=== PATIENT | female | born 1950 | race Caucasian/White ===

== ENCOUNTER 2016-09-10 11:43 | Outpatient (CLI) | payer MEDICARE, MEDICAID | END 2016-09-10 11:44 | disposition home or self-care (01) | DX: Z79.01 Long term (current) use of anticoagulants (principal); I48.91 Unspecified atrial fibrillation ==

== ENCOUNTER 2016-09-12 08:00 | Outpatient (CLI) | payer MEDICARE, MEDICAID | END 2016-09-12 08:01 | disposition home or self-care (01) | DX: I48.91 Unspecified atrial fibrillation (principal); Z79.01 Long term (current) use of anticoagulants ==

== ENCOUNTER 2016-09-18 11:30 | Outpatient (CLI) | payer MEDICARE, MEDICAID | END 2016-09-18 11:31 | disposition home or self-care (01) | DX: I48.91 Unspecified atrial fibrillation (principal); Z79.01 Long term (current) use of anticoagulants ==

== ENCOUNTER 2016-09-24 18:16 | Outpatient (CLI) | payer MEDICARE, MEDICAID | END 2016-09-24 18:17 | disposition home or self-care (01) | DX: Z79.01 Long term (current) use of anticoagulants (principal); I48.91 Unspecified atrial fibrillation ==

== ENCOUNTER 2016-10-09 09:38 | Outpatient (CLI) | payer MEDICARE, MEDICAID | END 2016-10-09 09:39 | disposition EMS.NT | DX: R09.89 Other specified symptoms and signs involving the circulatory and respiratory systems (principal) ==

== ENCOUNTER 2016-10-09 16:14 | Outpatient (CLI) | payer MEDICARE, MEDICAID | END 2016-10-09 16:15 | disposition home or self-care (01) | DX: Z79.01 Long term (current) use of anticoagulants (principal); I48.91 Unspecified atrial fibrillation ==

== ENCOUNTER 2016-10-30 13:28 | Outpatient (CLI) | payer MEDICARE, MEDICAID | END 2016-10-30 13:29 | disposition home or self-care (01) | DX: Z79.01 Long term (current) use of anticoagulants (principal); I48.91 Unspecified atrial fibrillation ==

== ENCOUNTER 2016-10-30 19:46 | Outpatient (CLI) | payer MEDICARE, MEDICAID | END 2016-10-30 19:47 | disposition short-term general hospital (02) | LOC: EMS 19:46 | PROVIDERS: ATTEND Surgery | DX: R79.1 Abnormal coagulation profile (principal) | CPT/HCPCS: A0425; A0429 ==

== ENCOUNTER 2016-10-31 11:14 | Outpatient (CLI) | payer MEDICARE, MEDICAID | END 2016-10-31 11:15 | disposition home or self-care (01) | DX: Z79.01 Long term (current) use of anticoagulants (principal); I48.91 Unspecified atrial fibrillation ==

== ENCOUNTER 2016-11-05 18:04 | Outpatient (CLI) | payer MEDICARE, MEDICAID | END 2016-11-05 18:05 | disposition home or self-care (01) | DX: Z79.01 Long term (current) use of anticoagulants (principal); I48.91 Unspecified atrial fibrillation ==

== ENCOUNTER 2016-11-10 15:11 | Outpatient (CLI) | payer MEDICARE, MEDICAID | END 2016-11-10 15:12 | disposition home or self-care (01) | DX: Z79.01 Long term (current) use of anticoagulants (principal); I48.91 Unspecified atrial fibrillation ==

== ENCOUNTER 2016-11-14 13:49 | Outpatient (CLI) | payer MEDICARE, MEDICAID | END 2016-11-14 13:50 | disposition home or self-care (01) | DX: I48.91 Unspecified atrial fibrillation (principal); Z79.01 Long term (current) use of anticoagulants ==

== ENCOUNTER 2016-11-17 11:05 | Outpatient (CLI) | payer MEDICARE, MEDICAID | END 2016-11-17 11:06 | disposition home or self-care (01) | DX: I48.91 Unspecified atrial fibrillation (principal); Z79.01 Long term (current) use of anticoagulants ==

== ENCOUNTER 2016-11-24 13:38 | Outpatient (CLI) | payer MEDICARE, MEDICAID | END 2016-11-24 13:39 | disposition home or self-care (01) | DX: I48.91 Unspecified atrial fibrillation (principal); Z79.01 Long term (current) use of anticoagulants ==

== ENCOUNTER 2016-12-01 14:17 | Outpatient (CLI) | payer MEDICARE, MEDICAID | END 2016-12-01 14:18 | disposition home or self-care (01) | DX: Z79.01 Long term (current) use of anticoagulants (principal); I48.91 Unspecified atrial fibrillation ==

== ENCOUNTER 2016-12-08 10:19 | Outpatient (CLI) | payer MEDICARE, MEDICAID | END 2016-12-08 10:20 | disposition home or self-care (01) | DX: I48.91 Unspecified atrial fibrillation (principal); Z79.01 Long term (current) use of anticoagulants; E11.9 Type 2 diabetes mellitus without complications; E03.9 Hypothyroidism, unspecified ==

== ENCOUNTER 2016-12-15 15:07 | Outpatient (CLI) | payer MEDICARE, MEDICAID | END 2016-12-15 15:08 | disposition home or self-care (01) | DX: I48.91 Unspecified atrial fibrillation (principal); Z79.01 Long term (current) use of anticoagulants ==

== ENCOUNTER 2016-12-22 15:32 | Outpatient (CLI) | payer MEDICARE, MEDICAID | END 2016-12-22 15:33 | disposition home or self-care (01) | DX: I48.91 Unspecified atrial fibrillation (principal); Z79.01 Long term (current) use of anticoagulants ==

== ENCOUNTER 2016-12-25 11:03 | Outpatient (CLI) | payer MEDICARE, MEDICAID | END 2016-12-25 11:04 | disposition home or self-care (01) | DX: E03.9 Hypothyroidism, unspecified (principal); E11.9 Type 2 diabetes mellitus without complications; D50.9 Iron deficiency anemia, unspecified; I10 Essential (primary) hypertension; E66.01 Morbid (severe) obesity due to excess calories ==

== ENCOUNTER 2016-12-28 20:43 | Outpatient (CLI) | payer MEDICARE, MEDICAID | END 2016-12-28 20:44 | disposition home or self-care (01) | DX: Z79.01 Long term (current) use of anticoagulants (principal); I48.91 Unspecified atrial fibrillation ==

== ENCOUNTER 2017-01-12 11:08 | Outpatient (CLI) | payer MEDICARE, MEDICAID | END 2017-01-12 11:09 | disposition home or self-care (01) | LOC: LAB.F 11:08 | PROVIDERS: ATTEND Pharmacist Pharmacist Clinician (PhC)/ Clinical Pharmacy Specialist | DX: I48.91 Unspecified atrial fibrillation (principal); Z79.01 Long term (current) use of anticoagulants | CPT/HCPCS: 85610 ==

== ENCOUNTER 2017-01-30 15:01 | Outpatient (CLI) | payer MEDICARE, MEDICAID | END 2017-01-30 15:02 | disposition home or self-care (01) | LOC: LAB.F 15:01 | PROVIDERS: ATTEND Pharmacist Pharmacist Clinician (PhC)/ Clinical Pharmacy Specialist | DX: I48.91 Unspecified atrial fibrillation (principal); Z79.01 Long term (current) use of anticoagulants | CPT/HCPCS: 85610 ==

== ENCOUNTER 2017-02-26 08:00 | Outpatient (CLI) | payer MEDICARE, MEDICAID | END 2017-02-26 08:01 | LOC: LAB.F 08:00 | PROVIDERS: ATTEND Pharmacist Pharmacist Clinician (PhC)/ Clinical Pharmacy Specialist | DX: Z79.01 Long term (current) use of anticoagulants (principal) | CPT/HCPCS: 85610 ==

== ENCOUNTER 2017-03-20 14:47 | Outpatient (CLI) | payer MEDICARE, MEDICAID | END 2017-03-20 14:48 | disposition home or self-care (01) | LOC: LAB.F 14:47 | PROVIDERS: ATTEND Pharmacist Pharmacist Clinician (PhC)/ Clinical Pharmacy Specialist | DX: I48.91 Unspecified atrial fibrillation (principal); Z79.01 Long term (current) use of anticoagulants | CPT/HCPCS: 85610 ==

== ENCOUNTER 2017-04-17 15:24 | Outpatient (CLI) | payer MEDICARE, MEDICAID | END 2017-04-17 15:25 | disposition home or self-care (01) | LOC: LAB.F 15:24 | PROVIDERS: ATTEND Pharmacist Pharmacist Clinician (PhC)/ Clinical Pharmacy Specialist | DX: I48.91 Unspecified atrial fibrillation (principal); Z79.01 Long term (current) use of anticoagulants | CPT/HCPCS: 85610 ==

== ENCOUNTER 2017-04-24 14:45 | Outpatient (CLI) | payer MEDICARE, MEDICAID | END 2017-04-24 14:46 | disposition home or self-care (01) | LOC: LAB.F 14:45 | PROVIDERS: ATTEND Pharmacist Pharmacist Clinician (PhC)/ Clinical Pharmacy Specialist | DX: I48.91 Unspecified atrial fibrillation (principal); Z79.01 Long term (current) use of anticoagulants | CPT/HCPCS: 85610 ==

== ENCOUNTER 2017-05-06 15:16 | Outpatient (CLI) | payer MEDICARE, MEDICAID | END 2017-05-06 15:17 | disposition home or self-care (01) | LOC: LAB.F 15:16 | PROVIDERS: ATTEND Pharmacist Pharmacist Clinician (PhC)/ Clinical Pharmacy Specialist | DX: I48.91 Unspecified atrial fibrillation (principal); Z79.01 Long term (current) use of anticoagulants | CPT/HCPCS: 85610 ==

== ENCOUNTER 2017-06-01 15:24 | Outpatient (CLI) | payer MEDICARE, MEDICAID | END 2017-06-01 15:25 | disposition home or self-care (01) | LOC: LAB.F 15:24 | PROVIDERS: ATTEND Family Medicine | DX: I48.91 Unspecified atrial fibrillation (principal); Z79.01 Long term (current) use of anticoagulants | CPT/HCPCS: 85610 ==

== ENCOUNTER 2017-07-06 11:31 | Outpatient (CLI) | payer MEDICARE, MEDICAID | END 2017-07-06 11:32 | disposition home or self-care (01) | LOC: LAB.F 11:31 | PROVIDERS: ATTEND Pharmacist Pharmacist Clinician (PhC)/ Clinical Pharmacy Specialist | DX: I48.91 Unspecified atrial fibrillation (principal); Z79.01 Long term (current) use of anticoagulants | CPT/HCPCS: 85610 ==

== ENCOUNTER 2017-07-23 13:58 | Outpatient (CLI) | payer MEDICARE, MEDICAID | END 2017-07-23 13:59 | disposition home or self-care (01) | LOC: LAB.F 13:58 | PROVIDERS: ATTEND Pharmacist Pharmacist Clinician (PhC)/ Clinical Pharmacy Specialist | DX: Z79.01 Long term (current) use of anticoagulants (principal); I48.91 Unspecified atrial fibrillation | CPT/HCPCS: 85610 ==

== ENCOUNTER 2017-08-12 11:43 | Outpatient (CLI) | payer MEDICARE, MEDICAID | END 2017-08-12 11:44 | disposition home or self-care (01) | LOC: LAB.F 11:43 | PROVIDERS: ATTEND Pharmacist Pharmacist Clinician (PhC)/ Clinical Pharmacy Specialist | DX: I48.91 Unspecified atrial fibrillation (principal); Z79.01 Long term (current) use of anticoagulants | CPT/HCPCS: 85610 ==

== ENCOUNTER 2017-08-14 13:55 | Outpatient (CLI) | payer MEDICARE, MEDICAID | END 2017-08-14 13:56 | disposition home or self-care (01) | LOC: LAB.F 13:55 | PROVIDERS: ATTEND Pharmacist Pharmacist Clinician (PhC)/ Clinical Pharmacy Specialist | DX: I48.91 Unspecified atrial fibrillation (principal); Z79.01 Long term (current) use of anticoagulants | CPT/HCPCS: 85610 ==

== ENCOUNTER 2017-08-21 16:12 | Outpatient (CLI) | payer MEDICARE, MEDICAID | END 2017-08-21 16:13 | disposition home or self-care (01) | LOC: LAB.F 16:12 | PROVIDERS: ATTEND Pharmacist Pharmacist Clinician (PhC)/ Clinical Pharmacy Specialist | DX: I48.91 Unspecified atrial fibrillation (principal); Z79.01 Long term (current) use of anticoagulants | CPT/HCPCS: 85610 ==

== ENCOUNTER 2017-08-28 08:00 | Outpatient (CLI) | payer MEDICARE, MEDICAID ==
[2017-08-28 19:03] LABS: PT - PROTHROMBIN TIME 98.7 secs (9.9-12.6)
[2017-08-28 19:33] LABS: INR 9.5 (0.8-1.2)
== END 2017-08-28 08:01 | disposition home or self-care (01) ==
LOC: LAB.F 08:00
DX: I48.91 Unspecified atrial fibrillation (principal); Z79.01 Long term (current) use of anticoagulants; I48.2 Chronic atrial fibrillation; Z51.81 Encounter for therapeutic drug level monitoring
CPT/HCPCS: 36415; 85610

== ENCOUNTER 2017-08-31 14:26 | Outpatient (CLI) | payer MEDICARE, MEDICAID | END 2017-08-31 14:27 | disposition home or self-care (01) | LOC: LAB.F 14:26 | PROVIDERS: ATTEND Pharmacist | DX: Z79.01 Long term (current) use of anticoagulants (principal); I48.91 Unspecified atrial fibrillation | CPT/HCPCS: 85610 ==

== ENCOUNTER 2017-09-02 15:27 | Outpatient (CLI) | payer MEDICARE, MEDICAID | END 2017-09-02 15:28 | disposition short-term general hospital (02) | LOC: EMS 15:27 | PROVIDERS: ATTEND Surgery | DX: N93.9 Abnormal uterine and vaginal bleeding, unspecified (principal) | CPT/HCPCS: A0425; A0429 ==

== ENCOUNTER 2017-09-04 12:03 | Emergency (ER) | payer MEDICARE, MEDICAID ==
[2017-09-04 12:25] VITALS: BP 129/97
[2017-09-04] MEDS ORDERED: PHYTONADIONE 10 MG/ML AMP PO STA ×3 (14:41→15:06)
--- NOTE | 2017-09-04 14:46 | ED Physician Documentation ---
History of Present Illness - Stated complaint Stated Complaint: L BIG TOE PX - Chief complaint Chief Complaint: General - History obtained from History obtained from: Patient - History of Present Illness Timing: How many days ago (4) Pain level max: 2 Pain level now: 2 Improved by: rest Worsened by: walking - Additonal information Additional information: Patient is a 67-year-old female who presents to the emergency department with left great toe pain. She states that it was swollen a few days ago, her son squeezed and there was pus that came out, now concerned that there is redness. Called her primary doctor who stated she cannot be seen there needs to come to the emergency department. Patient has no fevers. She also had an elevated INR last week and has been off her warfarin. 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 : Incontinence HEENT: Chronic sinusitis, Other Psych: Depression, Anxiety, Bipolar disorder, Claustrophobia Musculoskeletal: Osteoarthritis Derm: None - Past Surgical History Past Surgical History: Yes General: Appendectomy Ortho: Knee replacement, Carpal Tunnel surgery /HELPDES[employer] TECHNICIAN: Dilation and currettage Cardiovascular: Pacemaker HEENT: Tonsil/Adenoidectomy - Present Medications Home Medications: Ambulatory Orders Medication Instructions Recorded Confirmed Furosemide [Lasix] 40 mg PO BID 03/17/13 09/04/17 Lansoprazole [Prevacid] 30 mg PO BID 03/17/13 09/04/17 Levothyroxine [Synthroid] 100 mcg PO DAILY 03/17/13 09/04/17 Potassium Chloride [Klor-Con M20] 20 meq PO DAILY 03/17/13 09/04/17 Warfarin Sodium [Coumadin] 4 mg PO ONCE 03/17/13 09/04/17 metFORMIN [Glucophage] 1,000 mg PO BID 03/17/13 09/04/17 Fluticasone [Flonase] 2 sprays ECHO BID 06/24/13 09/04/17 Lactulose 2 tbs PO BID PRN 06/24/13 09/04/17 Lubiprostone [Amitiza] 24 mcg PO BID 06/24/13 09/04/17 Sotalol [Betapace] 80 mg PO BID 06/24/13 09/04/17 Celecoxib [Celebrex] 200 mg PO BID 09/04/14 09/04/17 Citalopram Hydrobromide 20 mg PO DAILY 09/04/14 09/04/17 [Citalopram HBr] Nystatin/Triamcin 30 gm TP BID PRN 09/04/14 09/04/17 [Nystatin-Triamcinolone Cream] Simvastatin 20 mg PO DAILY 09/04/14 09/04/17 Dicyclomine [Bentyl] 1 tab PO DAILY 03/16/16 09/04/17 Doxycycline Hyclate 100 mg PO BID #14 capsule 09/04/17 - Allergies Allergies/Adverse Reactions: Allergies Allergy/AdvReac Type Severity Reaction Status Date / Time amlodipine Allergy Unknown Unknown Verified 09/04/17 12:48 flecainide Allergy Unknown Unknown Verified 09/04/17 12:48 cephalexin monohydrate * AdvReac Intermediate Diarrhea Verified 09/04/17 12:48 [From Keflex] tape AdvReac Intermediate Rash Uncoded 09/04/17 12:48 - Social History Does the pt smoke?: No Smoking Status: Never smoker Does the pt drink ETOH?: No Does the pt have substance abuse?: No - Immunizations Immunizations are current?: Yes - POLST Patient has POLST: No PD ED PE NORMAL - Vitals Vital signs reviewed: Yes - General General: Alert and oriented X 3, No acute distress - HEENT HEENT: Moist mucous membranes - Derm Derm: Warm and dry - Extremities Extremities: Other (Left great toe is mildly erythematous on the plantar aspect. No drainable abscess. No evidence of deep space infection in the foot. No drainage. Neurovascularly intact) - Neuro Neuro: Alert and oriented X 3 - Psych Psych: Normal mood, Normal affect Results - Vitals Vitals: Vital Signs - 24 hr 09/04/17 12:20 Temperature 36.2 C L Heart Rate 127 H Respiratory 20 Rate Blood Pressure 129/97 H O2 Saturation 97 Oxygen O2 Source [With Activity] Room air O2 Source Room air - Labs Labs: Laboratory Tests 09/04/17 14:40 Whole Blood INR 8.0 H* PD MEDICAL DECISION MAKING - ED course Complexity details: reviewed old records, reviewed results, re-evaluated patient , considered differential, d/w patient ED course: Patient presents to the emergency department with a mild cellulitis of the left great toe. Will place on antibiotics for this. As I was reviewing her chart, I noted that she had a significantly elevated INR recently, patient states that she forgot to tell me about this and has not been taking her warfarin. As her INR is not significantly changed over the past few days despite holding her warfarin, will give a small dose of vitamin K here. She has no evidence of active bleeding. We will have her follow-up with her doctor for further care. Patient counseled regarding signs and symptoms for which I believe and urgent re -evaluation would be necessary. Patient with good understanding of and agreement to plan and is comfortable going home at this time This document was made in part using voice recognition software. While efforts are made to proofread this document, sound alike and grammatical errors may occur. Departure - Departure Disposition: 01 Home, Self Care Clinical Impression: Supratherapeutic INR Cellulitis Qualifiers: Site of cellulitis: extremity Site of cellulitis of extremity: toe Laterality: left Qualified Code(s): L03.032 - Cellulitis of left toe Condition: Good Instructions: ED Infec Skin Cellulitis Follow-Up: Anna Ascencio DO [Primary Care Provider] - Within 3 Days (for wound check and INR check) Prescriptions: Doxycycline Hyclate 100 mg PO BID #14 capsule Comments: Take all antibiotics until gone. Return if you worsen. Continue to hold her warfarin at home. You should have your INR rechecked in 2-3 days. Discharge Date/Time: 09/04/17 15:19
== END 2017-09-04 15:19 | disposition home or self-care (01) ==
LOC: ED 12:03
DX: L03.032 Cellulitis of left toe (principal); I10 Essential (primary) hypertension; Z86.718 Personal history of other venous thrombosis and embolism; Z86.711 Personal history of pulmonary embolism; E11.9 Type 2 diabetes mellitus without complications; Z79.84 Long term (current) use of oral hypoglycemic drugs; Z96.659 Presence of unspecified artificial knee joint; Z95.0 Presence of cardiac pacemaker; Z79.01 Long term (current) use of anticoagulants
CPT/HCPCS: 85610; 99283

== ENCOUNTER 2017-09-07 08:00 | Outpatient (CLI) | payer MEDICARE, MEDICAID | END 2017-09-07 08:01 | disposition home or self-care (01) | LOC: LAB.F 08:00 | PROVIDERS: ATTEND Pharmacist Pharmacist Clinician (PhC)/ Clinical Pharmacy Specialist | DX: I48.91 Unspecified atrial fibrillation (principal); Z79.01 Long term (current) use of anticoagulants | CPT/HCPCS: 85610 ==

== ENCOUNTER 2017-09-11 14:28 | Outpatient (CLI) | payer MEDICAID | END 2017-09-11 14:29 | disposition home or self-care (01) | LOC: LAB.F 14:28 | PROVIDERS: ATTEND Pharmacist | DX: I48.91 Unspecified atrial fibrillation (principal); Z79.01 Long term (current) use of anticoagulants | CPT/HCPCS: 85610 ==

== ENCOUNTER 2017-09-14 08:00 | Outpatient (CLI) | payer MEDICARE, MEDICAID | END 2017-09-14 08:01 | disposition home or self-care (01) | LOC: LAB.F 08:00 | PROVIDERS: ATTEND Pharmacist | DX: I48.91 Unspecified atrial fibrillation (principal); Z79.01 Long term (current) use of anticoagulants | CPT/HCPCS: 85610 ==

== ENCOUNTER 2017-09-21 14:28 | Outpatient (CLI) | payer MEDICARE, MEDICAID | END 2017-09-21 14:29 | disposition home or self-care (01) | LOC: LAB.F 14:28 | PROVIDERS: ATTEND Pharmacist | DX: I48.91 Unspecified atrial fibrillation (principal); Z79.01 Long term (current) use of anticoagulants | CPT/HCPCS: 85610 ==

== ENCOUNTER 2017-09-29 10:43 | Outpatient (CLI) | payer MEDICARE, MEDICAID | END 2017-09-29 10:44 | disposition home or self-care (01) | LOC: LAB.F 10:43 | PROVIDERS: ATTEND Pharmacist | DX: I48.91 Unspecified atrial fibrillation (principal); Z79.01 Long term (current) use of anticoagulants | CPT/HCPCS: 85610 ==

== ENCOUNTER 2017-10-05 14:29 | Outpatient (CLI) | payer MEDICARE, MEDICAID | END 2017-10-05 14:30 | disposition home or self-care (01) | LOC: LAB.F 14:29 | PROVIDERS: ATTEND Pharmacist | DX: I48.91 Unspecified atrial fibrillation (principal); Z79.01 Long term (current) use of anticoagulants | CPT/HCPCS: 85610 ==

== ENCOUNTER 2017-10-13 14:02 | Outpatient (CLI) | payer MEDICARE, MEDICAID | END 2017-10-13 14:03 | disposition home or self-care (01) | LOC: LAB.F 14:02 | PROVIDERS: ATTEND Pharmacist | DX: I48.91 Unspecified atrial fibrillation (principal); Z79.01 Long term (current) use of anticoagulants | CPT/HCPCS: 85610 ==

== ENCOUNTER 2017-10-27 14:06 | Outpatient (CLI) | payer MEDICARE, MEDICAID | END 2017-10-27 14:07 | disposition home or self-care (01) | LOC: LAB.F 14:06 | PROVIDERS: ATTEND Pharmacist | DX: Z53.9 Procedure and treatment not carried out, unspecified reason (principal) ==

== ENCOUNTER 2017-10-27 14:08 | Outpatient (CLI) | payer MEDICARE, MEDICAID | END 2017-10-27 14:09 | disposition home or self-care (01) | LOC: LAB.F 14:08 | PROVIDERS: ATTEND Pharmacist | DX: I48.91 Unspecified atrial fibrillation (principal); Z79.01 Long term (current) use of anticoagulants | CPT/HCPCS: 85610 ==

== ENCOUNTER 2017-11-03 08:00 | Outpatient (CLI) | payer MEDICARE, MEDICAID | END 2017-11-03 08:01 | LOC: LAB.F 08:00 | PROVIDERS: ATTEND Pharmacist | DX: I48.91 Unspecified atrial fibrillation (principal); Z79.01 Long term (current) use of anticoagulants | CPT/HCPCS: 85610 ==

== ENCOUNTER 2017-11-03 15:22 | Outpatient (CLI) | payer MEDICARE, MEDICAID | END 2017-11-03 15:23 | disposition home or self-care (01) | LOC: LAB.F 15:22 | PROVIDERS: ATTEND Pharmacist | DX: I48.91 Unspecified atrial fibrillation (principal); Z79.01 Long term (current) use of anticoagulants ==

== ENCOUNTER 2017-11-11 13:59 | Outpatient (CLI) | payer MEDICARE, MEDICAID | END 2017-11-11 14:00 | disposition home or self-care (01) | LOC: LAB.F 13:59 | PROVIDERS: ATTEND Pharmacist | DX: I48.91 Unspecified atrial fibrillation (principal); Z79.01 Long term (current) use of anticoagulants | CPT/HCPCS: 85610 ==

== ENCOUNTER 2017-11-20 16:13 | Outpatient (CLI) | payer MEDICARE, MEDICAID | END 2017-11-20 16:14 | disposition home or self-care (01) | LOC: LAB.F 16:13 | PROVIDERS: ATTEND Pharmacist | DX: I48.91 Unspecified atrial fibrillation (principal); Z79.01 Long term (current) use of anticoagulants | CPT/HCPCS: 85610 ==

== ENCOUNTER 2017-12-02 12:08 | Outpatient (CLI) | payer MEDICARE, MEDICAID | END 2017-12-02 12:09 | disposition home or self-care (01) | LOC: LAB.F 12:08 | PROVIDERS: ATTEND Pharmacist | DX: I48.91 Unspecified atrial fibrillation (principal); Z79.01 Long term (current) use of anticoagulants | CPT/HCPCS: 85610 ==

== ENCOUNTER 2017-12-16 14:14 | Outpatient (CLI) | payer MEDICARE, MEDICAID | END 2017-12-16 14:15 | disposition home or self-care (01) | LOC: LAB.F 14:14 | PROVIDERS: ATTEND Pharmacist | DX: I48.91 Unspecified atrial fibrillation (principal); Z79.01 Long term (current) use of anticoagulants | CPT/HCPCS: 85610 ==

== ENCOUNTER 2018-01-01 16:03 | Outpatient (CLI) | payer MEDICARE, MEDICAID | END 2018-01-01 16:04 | disposition home or self-care (01) | LOC: LAB.F 16:03 | PROVIDERS: ATTEND Pharmacist | DX: I48.91 Unspecified atrial fibrillation (principal); Z79.01 Long term (current) use of anticoagulants | CPT/HCPCS: 85610 ==

== ENCOUNTER 2018-01-19 14:36 | Outpatient (CLI) | payer MEDICARE, MEDICAID | END 2018-01-19 14:37 | disposition home or self-care (01) | LOC: LAB.F 14:36 | PROVIDERS: ATTEND Pharmacist | DX: I48.91 Unspecified atrial fibrillation (principal); Z79.01 Long term (current) use of anticoagulants | CPT/HCPCS: 85610 ==

== ENCOUNTER 2018-01-27 17:57 | Outpatient (CLI) | payer MEDICARE, MEDICAID | END 2018-01-27 17:58 | disposition home or self-care (01) | LOC: LAB 17:57 | PROVIDERS: ATTEND Pharmacist | DX: I48.91 Unspecified atrial fibrillation (principal); Z79.01 Long term (current) use of anticoagulants | CPT/HCPCS: 85610 ==

== ENCOUNTER 2018-02-13 14:34 | Outpatient (CLI) | payer MEDICARE, MEDICAID ==
[2018-02-13 15:40] LABS: INR 1.3 (0.8-1.2); PT - PROTHROMBIN TIME 14.2 secs (9.9-12.6)
== END 2018-02-13 14:35 | disposition home or self-care (01) ==
LOC: LAB 14:34
PROVIDERS: ATTEND Pharmacist
DX: I48.91 Unspecified atrial fibrillation (principal); Z79.01 Long term (current) use of anticoagulants
CPT/HCPCS: 36415; 85610

== ENCOUNTER 2018-03-04 14:56 | Outpatient (CLI) | payer MEDICARE, MEDICAID | END 2018-03-04 14:57 | disposition home or self-care (01) | LOC: LAB.F 14:56 | PROVIDERS: ATTEND Pharmacist | DX: Z79.01 Long term (current) use of anticoagulants (principal); I48.91 Unspecified atrial fibrillation | CPT/HCPCS: 85610 ==

== ENCOUNTER 2018-03-07 21:16 | Outpatient (CLI) | payer MEDICARE, MEDICAID | END 2018-03-07 21:17 | disposition short-term general hospital (02) | LOC: EMS 21:16 | PROVIDERS: ATTEND Surgery | DX: R07.89 Other chest pain (principal); R06.02 Shortness of breath | CPT/HCPCS: A0170; A0425; A0427; A0999 ==

== ENCOUNTER 2018-03-18 16:05 | Outpatient (CLI) | payer MEDICARE, MEDICAID | END 2018-03-18 16:06 | disposition home or self-care (01) | LOC: LAB.F 16:05 | PROVIDERS: ATTEND Pharmacist | DX: Z79.01 Long term (current) use of anticoagulants (principal); I48.91 Unspecified atrial fibrillation | CPT/HCPCS: 85610 ==

== ENCOUNTER 2018-04-06 13:53 | Outpatient (CLI) | payer MEDICARE, MEDICAID | END 2018-04-06 13:54 | disposition home or self-care (01) | LOC: LAB.F 13:53 | PROVIDERS: ATTEND Pharmacist | DX: I48.91 Unspecified atrial fibrillation (principal); Z79.01 Long term (current) use of anticoagulants | CPT/HCPCS: 85610 ==

== ENCOUNTER 2018-04-23 13:59 | Outpatient (CLI) | payer MEDICARE, MEDICAID ==
[2018-04-23 17:38] LABS: CALCIUM 9.2 mg/dL (8.5-10.3); CREATININE 0.6 mg/dL (0.4-1.0)
[2018-04-23 18:10] LABS: HEMOGLOBIN A1C 1.12 g/dL
== END 2018-04-23 14:00 | disposition home or self-care (01) ==
LOC: LAB.F 13:59
PROVIDERS: ATTEND Internal Medicine
DX: E11.9 Type 2 diabetes mellitus without complications (principal); E03.9 Hypothyroidism, unspecified
CPT/HCPCS: 36415; 80048; 82043; 83036; 84443

== ENCOUNTER 2018-05-03 17:55 | Outpatient (CLI) | payer MEDICARE, MEDICAID | END 2018-05-03 17:56 | disposition home or self-care (01) | LOC: LAB 17:55 | PROVIDERS: ATTEND Pharmacist | DX: I48.91 Unspecified atrial fibrillation (principal); Z79.01 Long term (current) use of anticoagulants | CPT/HCPCS: 85610 ==

== ENCOUNTER 2018-05-20 17:46 | Outpatient (CLI) | payer MEDICARE, MEDICAID ==
[2018-05-20 18:27] LABS: BUN - BLOOD UREA NITROGEN 17 mg/dL (6-20); CALCIUM 8.5 mg/dL (8.5-10.3); CARBON DIOXIDE - CO2 26 mmol/L (21-32); CHLORIDE 99 mmol/L (101-111); CREATININE 0.8 mg/dL (0.4-1.0); DIGOXIN 0.2 ng/mL; GFR - MDRD 72 (>89); GLUCOSE 255 mg/dL (70-100); SODIUM 136 mmol/L (135-145)
--- NOTE | 2018-05-20 19:41 | XRAY Report ---
Reason: PAIN BILAT HALLUX INTERPHALANGEAL JOINTS Procedure Date: 05/20/2018 Accession Number: [id number] / [id number] Procedure: XR - Toe(s) BILAT CPT Code: FULL RESULT: EXAM: BILATERAL TOE RADIOGRAPHY EXAM DATE: 05/20/2018 06:20 PM. CLINICAL HISTORY: PAIN BILAT HALLUX INTERPHALANGEAL JOINTS. COMPARISON: None. TECHNIQUE: 3 views each. FINDINGS: Bones: There is mild to moderate spurring of the right first metatarsal phalangeal joint. There is hypertrophy and spurring of the second distal phalanx of the right foot. No acute fracture. No fracture of the left first digit. There is degenerative disease of the second PIP and DIP joints with spurring and joint space narrowing. Joints: There is mild joint space narrowing of the right metatarsal phalangeal joint. The left first digit joints appear preserved. Soft Tissues: There is a triangular shaped nonmetallic density projecting medial to the first proximal phalanx and measuring 4 mm in diameter. IMPRESSION: 1. Mild to moderate degenerative disease right first metatarsal phalangeal joint. 2. Possible nonmetallic 4 mm foreign body in the soft tissues medial to the first proximal phalanx. 3. Features of osteoarthritis of the second interphalangeal joints bilaterally. RADIA
== END 2018-05-20 17:47 | disposition home or self-care (01) ==
LOC: DI 17:46
PROVIDERS: ATTEND Podiatrist
DX: M19.072 Primary osteoarthritis, left ankle and foot (principal); M19.071 Primary osteoarthritis, right ankle and foot; I48.2 Chronic atrial fibrillation
CPT/HCPCS: 36415; 73660; 80048; 80162

== ENCOUNTER 2018-06-01 14:22 | Outpatient (CLI) | payer MEDICARE, MEDICAID ==
--- NOTE | 2018-06-01 16:19 | XRAY Report ---
Reason: PAIN IN LEFT AND RIGHT SHOULDERS Procedure Date: 06/01/2018 Accession Number: [id number] / [id number] Procedure: XR - Shoulder 2 View BILAT CPT Code: FULL RESULT: EXAM: BILATERAL SHOULDER RADIOGRAPHY EXAM DATE: 06/01/2018 03:12 PM. CLINICAL HISTORY: Pain in left and right shoulders. COMPARISON: None. TECHNIQUE: 2 views of each shoulder. FINDINGS: Right: Bones: Normal. No fracture or bone lesion. Joints: The glenohumeral and acromioclavicular joints are normal. Soft tissues: The visualized hemithorax is unremarkable. No soft tissue swelling. Left: Bones: Normal. No fracture or bone lesion. Joints: The glenohumeral and acromioclavicular joints are normal. Soft tissues: The visualized hemithorax is unremarkable. No soft tissue swelling. IMPRESSION: Normal shoulder radiography bilaterally. RADIA
== END 2018-06-01 14:23 | disposition home or self-care (01) ==
LOC: DI 14:22
PROVIDERS: ATTEND Internal Medicine
DX: M25.511 Pain in right shoulder (principal); M25.512 Pain in left shoulder

== ENCOUNTER 2018-06-23 15:22 | Outpatient (CLI) | payer MEDICARE, MEDICAID ==
[2018-06-23 18:07] LABS: PT - PROTHROMBIN TIME 50.8 secs (9.9-12.6)
[2018-06-24 09:53] LABS: INR 4.6 (0.8-1.2)
== END 2018-06-23 15:23 | disposition home or self-care (01) ==
LOC: LAB.F 15:22
PROVIDERS: ATTEND Pharmacist
DX: I48.91 Unspecified atrial fibrillation (principal)
CPT/HCPCS: 85610

== ENCOUNTER → 2018-07-06 | Outpatient (CLI) | payer MEDICARE, MEDICAID ==
[2018-07-06 17:58] LABS: INR 3.6 (0.8-1.2); PT - PROTHROMBIN TIME 40.1 secs (9.9-12.6)
== END ==
LOC: LAB.F 15:59
PROVIDERS: ATTEND Pharmacist
DX: I48.91 Unspecified atrial fibrillation (principal); Z79.01 Long term (current) use of anticoagulants
CPT/HCPCS: 36415; 85610

== ENCOUNTER 2018-07-28 13:25 | Outpatient (CLI) | payer MEDICARE, MEDICAID | END 2018-07-28 13:26 | disposition home or self-care (01) | LOC: LAB.F 13:25 | PROVIDERS: ATTEND Pharmacist | DX: I48.91 Unspecified atrial fibrillation (principal); Z79.01 Long term (current) use of anticoagulants | CPT/HCPCS: 85610 ==

== ENCOUNTER 2018-08-18 15:15 | Outpatient (CLI) | payer MEDICARE, MEDICAID | END 2018-08-18 15:16 | disposition home or self-care (01) | LOC: LAB.F 15:15 | PROVIDERS: ATTEND Pharmacist | DX: I48.91 Unspecified atrial fibrillation (principal); Z79.01 Long term (current) use of anticoagulants | CPT/HCPCS: 85610 ==

== ENCOUNTER 2018-08-26 00:31 | Outpatient (CLI) | payer MEDICARE, MEDICAID | END 2018-08-26 00:32 | disposition home or self-care (01) | LOC: EMS 00:31 | PROVIDERS: ATTEND Surgery | DX: R69 Illness, unspecified (principal) ==

== ENCOUNTER 2018-08-26 08:10 | Outpatient (CLI) | payer MEDICARE, MEDICAID | END 2018-08-26 08:11 | disposition short-term general hospital (02) | LOC: EMS 08:10 | PROVIDERS: ATTEND Surgery | DX: R11.2 Nausea with vomiting, unspecified (principal); R19.7 Diarrhea, unspecified; R10.9 Unspecified abdominal pain | CPT/HCPCS: A0425; A0429 ==

== ENCOUNTER 2018-08-31 11:51 | Outpatient (CLI) | payer MEDICARE, MEDICAID ==
[2018-08-31 14:00] LABS: CREATININE 0.7 mg/dL (0.4-1.0); MAGNESIUM 1.1 mg/dL (1.7-2.8)
[2018-08-31 14:08] LABS: BASOPHILS % (AUTO) 0.2 %; EOSINOPHILS # (AUTO) 0.3 10^3/uL (0.0-0.7); EOSINOPHILS % (AUTO) 2.3 %; HGB - HEMOGLOBIN 13.5 g/dL (12.0-16.0); LYMPHOCYTES # (AUTO) 2.8 10^3/uL (1.5-3.5); LYMPHOCYTES % (AUTO) 23.2 %; MEAN CORPUSCULAR HEMOGLOBIN 26.6 pg (27.0-31.0); MEAN CORPUSCULAR HGB CONC 33.3 g/dL (32.0-36.0); MEAN CORPUSCULAR VOLUME 79.8 fL (81.0-99.0); MEAN PLATELET VOLUME 9.6 fL (7.9-10.8); MONOCYTES # (AUTO) 0.9 10^3/uL (0.0-1.0); MONOCYTES % (AUTO) 7.2 %; NEUTROPHILS % (AUTO) 67.1 %; PLT - PLATELET COUNT 331 10^3/uL (130-450); RED BLOOD COUNT 5.08 10^6/uL (4.20-5.40); RED CELL DISTRIBUTION WIDTH 14.7 % (12.0-15.0)
[2018-08-31 14:23] LABS: INR 2.4 (0.8-1.2); PT - PROTHROMBIN TIME 26.9 secs (9.9-12.6)
[2018-08-31 14:38] LABS: RBC MORPHOLOGY (MULTIPLE) 1+ ANISOCYTOSIS (NORMAL)
== END 2018-08-31 11:52 | disposition home or self-care (01) ==
LOC: LAB 11:51
PROVIDERS: ATTEND Internal Medicine
DX: I48.2 Chronic atrial fibrillation (principal); E87.6 Hypokalemia; Z79.01 Long term (current) use of anticoagulants; I82.409 Acute embolism and thrombosis of unspecified deep veins of unspecified lower extremity; Z51.81 Encounter for therapeutic drug level monitoring; K92.2 Gastrointestinal hemorrhage, unspecified
CPT/HCPCS: 36415; 80048; 83735; 85025; 85610

== ENCOUNTER 2018-09-21 11:13 | Outpatient (CLI) | payer MEDICARE, MEDICAID ==
[2018-09-21] MEDS ORDERED: IOVERSOL 320 50 ML VIAL ONE (11:42)
[2018-09-21] MEDS ORDERED: IOVERSOL 320 100 ML VIAL IVP ONE (11:43)
--- NOTE | 2018-09-21 13:31 | ANESTHESIA PROCEDURE NOTE ---
Height and Weight: Height 5 ft 5 in Body Mass Index 44.1 Allergies amlodipine Allergy (Unknown, Verified 09/04/17 12:48) Unknown flecainide Allergy (Unknown, Verified 09/04/17 12:48) Unknown cephalexin monohydrate * [From Keflex] Adverse Reaction (Intermediate, Verified 09/04/17 12:48) Diarrhea tape Adverse Reaction (Intermediate, Uncoded 09/04/17 12:48) Rash can use plastic tape Anes. Procedure Start Time: 13:20 Anes. Procedure Stop Time: 13:25 Procedure Notes: Called by CT for a difficult IV start. #20G IV started in patient's left hand X1 attempt. Patient tolerated well.
[2018-09-21] MEDS: IOVERSOL 320 100 ML VIAL IVP ONE (15:02)
[2018-09-21] MEDS: IOVERSOL 320 50 ML VIAL PO ONE (15:03)
--- NOTE | 2018-09-21 17:09 | CT Report ---
Reason: ABDOMEN PAIN Procedure Date: 09/21/2018 Accession Number: [id number] / [id number] Procedure: CT - Abdomen/Pelvis W/ CPT Code: FULL RESULT: EXAM: CT ABDOMEN AND PELVIS EXAM DATE: 09/21/2018 01:35 PM. CLINICAL HISTORY: Abdomen pain. COMPARISONS: None. TECHNIQUE: Routine helical CT imaging was performed through the abdomen and pelvis. IV contrast: ISOVUE 300 100mL. Enteric contrast: Yes. Reconstructions: Coronal and sagittal. In accordance with CT protocol optimization, one or more of the following dose reduction techniques were utilized for this exam: automated exposure control, adjustment of mA and/or KV based on patient size, or use of iterative reconstructive technique. FINDINGS: Lung Bases: Unremarkable. Liver: Hepatic steatosis with focal fatty sparing in the gallbladder fossa. Gallbladder/Bile Ducts: Unremarkable. Spleen: Normal. Pancreas: Atrophic. Adrenal Glands: Normal. Kidneys: Right renal cyst and bilateral renal hypodensities which are too small to characterize. No hydronephrosis. Peritoneal Cavity/Bowel: There is colonic predominantly in the sigmoid distribution without evidence of diverticulitis. No free fluid, free air or adenopathy by size criteria a few prominent retroperitoneal lymph nodes do not meet size criteria. No masses or acute inflammatory process. The appendix is not definitely visualized though there are no inflammatory changes in the pericecal region. Pelvic Organs: There are a few prominent inguinal lymph nodes left greater than right which measure up to 1.1 cm in short axis. The bladder and visualized pelvic organs are within normal limits. Vasculature: No aneurysms or other significant abnormality. Bones: A proximally 4 mm of retrolisthesis of L3 on L4 and advanced degenerative disk disease of L2 on L3. Other: Along the left anterior pelvic wall and the superficial soft tissues approximately 3 mm deep to the skin is a 2.1 x 1.5 cm soft tissue nodule. Nerve stimulator device is seen with its leads ending in the lower left hemisacrum. IMPRESSION: Hepatic steatosis. Soft tissue nodule in the subcutaneous soft tissues anterior to the left pelvis is nonspecific and can include benign etiologies such as injection granuloma or sebaceous cyst. If further imaging characterization is helpful, recommend soft tissue ultrasound. RADIA
== END 2018-09-21 11:14 | disposition home or self-care (01) ==
LOC: DI 11:13
PROVIDERS: ATTEND Internal Medicine
DX: K76.0 Fatty (change of) liver, not elsewhere classified (principal); R10.9 Unspecified abdominal pain; Z79.01 Long term (current) use of anticoagulants; I48.2 Chronic atrial fibrillation; I82.409 Acute embolism and thrombosis of unspecified deep veins of unspecified lower extremity; R22.2 Localized swelling, mass and lump, trunk
CPT/HCPCS: 74177; 85610; Q9967

== ENCOUNTER 2018-10-01 13:08 | Outpatient (CLI) | payer MEDICARE, MEDICAID ==
[2018-10-01 16:30] LABS: BASOPHILS # (AUTO) 0.1 10^3/uL (0.0-0.1); BASOPHILS % (AUTO) 0.8 %; EOSINOPHILS # (AUTO) 0.2 10^3/uL (0.0-0.7); EOSINOPHILS % (AUTO) 2.4 %; HGB - HEMOGLOBIN 12.8 g/dL (12.0-16.0); LYMPHOCYTES # (AUTO) 1.9 10^3/uL (1.5-3.5); LYMPHOCYTES % (AUTO) 28.5 %; MEAN CORPUSCULAR HEMOGLOBIN 26.3 pg (27.0-31.0); MEAN CORPUSCULAR HGB CONC 32.4 g/dL (32.0-36.0); MEAN CORPUSCULAR VOLUME 81.4 fL (81.0-99.0); MEAN PLATELET VOLUME 9.8 fL (7.9-10.8); MONOCYTES # (AUTO) 0.7 10^3/uL (0.0-1.0); MONOCYTES % (AUTO) 11.2 %; NEUTROPHILS # (AUTO) 3.8 10^3/uL (1.5-6.6); NEUTROPHILS % (AUTO) 57.1 %; PLT - PLATELET COUNT 300 10^3/uL (130-450); RED BLOOD COUNT 4.85 10^6/uL (4.20-5.40); WHITE BLOOD COUNT 6.6 x10^3/uL (4.8-10.8)
[2018-10-01 16:41] LABS: ALBUMIN 3.6 g/dL (3.2-5.5); ALBUMIN/GLOBULIN RATIO 1.1 (1.0-2.2); BILIRUBIN,TOTAL 0.9 mg/dL (0.2-1.0); CALCIUM 8.5 mg/dL (8.5-10.3); CREATININE 0.7 mg/dL (0.4-1.0); TOTAL PROTEIN 6.9 g/dL (6.7-8.2)
== END 2018-10-01 13:09 | disposition home or self-care (01) ==
LOC: LAB.F 13:08
PROVIDERS: ATTEND Internal Medicine
DX: K92.2 Gastrointestinal hemorrhage, unspecified (principal); E87.6 Hypokalemia; R11.0 Nausea
CPT/HCPCS: 36415; 80053; 82150; 83690; 85025

== ENCOUNTER 2018-10-07 14:21 | Outpatient (CLI) | payer MEDICARE, MEDICAID | END 2018-10-07 14:22 | disposition home or self-care (01) | LOC: LAB.F 14:21 | PROVIDERS: ATTEND Pharmacist | DX: I48.2 Chronic atrial fibrillation (principal); Z79.01 Long term (current) use of anticoagulants; I82.409 Acute embolism and thrombosis of unspecified deep veins of unspecified lower extremity; Z51.81 Encounter for therapeutic drug level monitoring | CPT/HCPCS: 85610 ==

== ENCOUNTER 2018-10-16 16:03 | Outpatient (CLI) | payer MEDICARE, MEDICAID | END 2018-10-16 16:04 | disposition short-term general hospital (02) | LOC: EMS 16:03 | PROVIDERS: ATTEND Surgery | DX: R25.2 Cramp and spasm (principal) | CPT/HCPCS: A0425; A0429 ==

== ENCOUNTER 2018-10-18 11:30 | Outpatient (CLI) | payer MEDICARE, MEDICAID | END 2018-10-18 11:31 | disposition home or self-care (01) | LOC: LAB.F 11:30 | PROVIDERS: ATTEND Pharmacist | DX: I48.2 Chronic atrial fibrillation (principal); I82.409 Acute embolism and thrombosis of unspecified deep veins of unspecified lower extremity; Z51.81 Encounter for therapeutic drug level monitoring; Z79.01 Long term (current) use of anticoagulants | CPT/HCPCS: 85610 ==

== ENCOUNTER 2018-11-01 13:42 | Outpatient (CLI) | payer MEDICARE, MEDICAID | END 2018-11-01 13:43 | disposition home or self-care (01) | LOC: LAB 13:42 | PROVIDERS: ATTEND Pharmacist | DX: Z51.81 Encounter for therapeutic drug level monitoring (principal); Z79.01 Long term (current) use of anticoagulants; I48.2 Chronic atrial fibrillation; I82.409 Acute embolism and thrombosis of unspecified deep veins of unspecified lower extremity | CPT/HCPCS: 85610 ==

== ENCOUNTER 2018-11-10 14:54 | Outpatient (CLI) | payer MEDICARE, MEDICAID ==
--- NOTE | 2018-11-11 06:08 | Ultrasound Report ---
Reason: VAGINAL BLEEDING 4 OVARIAN TENDERNESS Procedure Date: 11/10/2018 Accession Number: [id number] / [id number] Procedure: US - Pelvic w/Transvaginal CPT Code: FULL RESULT: EXAM: PELVIC ULTRASOUND EXAM DATE: 11/10/2018 03:47 PM. CLINICAL HISTORY: Vaginal bleeding, ovarian tenderness. COMPARISON: None. TECHNIQUE: Realtime transabdominal pelvic scan performed to identify the uterus and adnexa and as an overview of other pelvic structures, followed by transvaginal scan to provide greater detail of the uterus and adnexa, with static image documentation. FINDINGS: Uterus: 7.2 x 3.8 x 5.9 cm, volume 84 cc. Anteverted position. Normal overall size and echotexture. Masses: None. Endometrium: 15 mm. Thickened for a postmenopausal patient. A small complex cystic focus is present in the posterior fundal endometrium measuring 6 x 8 x 11 mm. No vascularity or significant solid component. Cervix: Unremarkable. Right Ovary: Not visualized. Left Ovary: Not visualized. Free Fluid: None. Other: None. IMPRESSION: 1. 11 mm complex cyst or collection of adjacent cysts within the fundal endometrium. No vascular mass identified. 2. Endometrium thickened to 15 mm for a postmenopausal patient. Cystic hypertrophy or diffuse mass lesion could be present. Biopsy may be considered. 3. Ovaries obscured by bowel gas. RADIA
== END 2018-11-10 14:55 | disposition home or self-care (01) ==
LOC: DI 14:54
PROVIDERS: ATTEND Internal Medicine
DX: N93.9 Abnormal uterine and vaginal bleeding, unspecified (principal); R10.2 Pelvic and perineal pain; N85.8 Other specified noninflammatory disorders of uterus; R93.89 Abnormal findings on diagnostic imaging of other specified body structures
CPT/HCPCS: 76830; 76856

== ENCOUNTER 2018-11-26 11:06 | Outpatient (CLI) | payer MEDICARE, MEDICAID | END 2018-11-26 11:07 | disposition home or self-care (01) | LOC: NS 11:06 | PROVIDERS: ATTEND Internal Medicine | DX: Z71.3 Dietary counseling and surveillance (principal); E11.9 Type 2 diabetes mellitus without complications | CPT/HCPCS: 97802 ==

== ENCOUNTER 2018-11-30 08:00 | Outpatient (CLI) | payer MEDICARE, MEDICAID ==
[2018-11-30 17:53] LABS: BASOPHILS # (AUTO) 0.1 10^3/uL (0.0-0.1); BASOPHILS % (AUTO) 0.9 %; EOSINOPHILS # (AUTO) 0.1 10^3/uL (0.0-0.7); EOSINOPHILS % (AUTO) 1.2 %; HGB - HEMOGLOBIN 12.9 g/dL (12.0-16.0); LYMPHOCYTES # (AUTO) 1.5 10^3/uL (1.5-3.5); LYMPHOCYTES % (AUTO) 22.1 %; MEAN CORPUSCULAR HEMOGLOBIN 25.9 pg (27.0-31.0); MEAN CORPUSCULAR HGB CONC 32.3 g/dL (32.0-36.0); MEAN CORPUSCULAR VOLUME 80.1 fL (81.0-99.0); MEAN PLATELET VOLUME 10.3 fL (7.9-10.8); MONOCYTES # (AUTO) 0.5 10^3/uL (0.0-1.0); MONOCYTES % (AUTO) 6.7 %; NEUTROPHILS # (AUTO) 4.7 10^3/uL (1.5-6.6); NEUTROPHILS % (AUTO) 69.1 %; PLT - PLATELET COUNT 304 10^3/uL (130-450); RED CELL DISTRIBUTION WIDTH 14.6 % (12.0-15.0); WHITE BLOOD COUNT 6.8 x10^3/uL (4.8-10.8)
[2018-11-30 18:19] LABS: HB2 TOTAL 14.2 g/dL; HEMOGLOBIN A1C 0.89 g/dL; HEMOGLOBIN A1C % 7.9 % (4.6-6.2)
[2018-11-30 18:41] LABS: ALBUMIN 3.4 g/dL (3.2-5.5); ALBUMIN/GLOBULIN RATIO 0.9 (1.0-2.2); ALKALINE PHOSPHATASE 131 IU/L (42-121); ALT ALANINE AMINOTRANSFERASE 23 IU/L (10-60); AST ASPARTATE AMINOTRANSFERASE 28 IU/L (10-42); BILIRUBIN,TOTAL 0.8 mg/dL (0.2-1.0); BUN - BLOOD UREA NITROGEN 13 mg/dL (6-20); CALCIUM 8.4 mg/dL (8.5-10.3); CARBON DIOXIDE - CO2 25 mmol/L (21-32); CHLORIDE 95 mmol/L (101-111); CHOL/HDL RATIO 3.9 (<4.4); CHOLESTEROL 147 mg/dL; CK- CREATINE KINASE 70 IU/L (22-269); CREATININE 0.7 mg/dL (0.4-1.0); DIGOXIN 0.6 ng/mL; GFR - MDRD 83 (>89); GLUCOSE 187 mg/dL (70-100); HDL CHOLESTEROL 38 mg/dL; LDL CHOLESTEROL,CALCULATED 94 mg/dL; LDL/HDL RATIO 2.5 (<4.4); SODIUM 134 mmol/L (135-145); VLDL CHOLESTEROL 15 mg/dL
[2018-12-01 11:12] LABS: HEPATITIS C ANTIBODY NON-REACTIVE (NON-REACTIVE)
== END 2018-11-30 23:59 | disposition home or self-care (01) ==
LOC: LAB.F 08:00
PROVIDERS: ATTEND Internal Medicine
DX: Z11.59 Encounter for screening for other viral diseases (principal); Z13.6 Encounter for screening for cardiovascular disorders; Z79.899 Other long term (current) drug therapy; E11.9 Type 2 diabetes mellitus without complications; K76.0 Fatty (change of) liver, not elsewhere classified; K58.9 Irritable bowel syndrome, unspecified; I48.91 Unspecified atrial fibrillation; N93.9 Abnormal uterine and vaginal bleeding, unspecified; E87.6 Hypokalemia
CPT/HCPCS: 36415; 80053; 80061; 80162; 82550; 82607; 83036; 83721; 85025; 86803

== ENCOUNTER 2019-01-28 14:28 | Outpatient (CLI) | payer MEDICARE, MEDICAID ==
[2019-01-28 15:14] LABS: CREATININE 0.6 mg/dL (0.4-1.0)
== END 2019-01-28 14:29 | disposition home or self-care (01) ==
LOC: LAB 14:28
PROVIDERS: ATTEND Orthopaedic Surgery
DX: G54.0 Brachial plexus disorders (principal); R20.0 Anesthesia of skin
CPT/HCPCS: 36415; 82565

== ENCOUNTER 2019-08-18 17:03 | Outpatient (CLI) | payer MEDICARE, MEDICAID ==
[2019-08-18 17:41] LABS: BASOPHILS # (AUTO) 0.1 10^3/uL (0.0-0.1); BASOPHILS % (AUTO) 0.8 %; EOSINOPHILS # (AUTO) 0.1 10^3/uL (0.0-0.7); EOSINOPHILS % (AUTO) 0.9 %; HGB - HEMOGLOBIN 12.3 g/dL (12.0-16.0); LYMPHOCYTES # (AUTO) 2.1 10^3/uL (1.5-3.5); LYMPHOCYTES % (AUTO) 23.6 %; MEAN CORPUSCULAR HEMOGLOBIN 27.2 pg (27.0-31.0); MEAN CORPUSCULAR HGB CONC 31.1 g/dL (32.0-36.0); MEAN CORPUSCULAR VOLUME 87.2 fL (81.0-99.0); MEAN PLATELET VOLUME 10.9 fL (7.9-10.8); MONOCYTES # (AUTO) 0.6 10^3/uL (0.0-1.0); MONOCYTES % (AUTO) 7.2 %; PLT - PLATELET COUNT 316 10^3/uL (130-450); RED BLOOD COUNT 4.53 10^6/uL (4.20-5.40); RED CELL DISTRIBUTION WIDTH 13.9 % (12.0-15.0); WHITE BLOOD COUNT 8.9 x10^3/uL (4.8-10.8)
== END 2019-08-18 17:04 | disposition home or self-care (01) ==
LOC: LAB 17:03
PROVIDERS: ATTEND Internal Medicine
DX: R10.13 Epigastric pain (principal); R10.9 Unspecified abdominal pain
CPT/HCPCS: 36415; 85025

== ENCOUNTER 2019-09-04 12:48 | Outpatient (CLI) | payer MEDICARE, MEDICAID | END 2019-09-04 12:49 | disposition short-term general hospital (02) | LOC: EMS 12:48 | PROVIDERS: ATTEND Surgery | DX: R10.9 Unspecified abdominal pain (principal) | CPT/HCPCS: A0425; A0429 ==

== ENCOUNTER 2020-04-20 19:06 | Outpatient (CLI) | payer MEDICARE, MEDICAID ==
--- NOTE | 2020-04-20 20:16 | XRAY Report ---
PROCEDURE: Foot 3 View LT INDICATIONS: Injury to 4th 5th Toe of L foot TECHNIQUE: 3 views of the foot were acquired. COMPARISON: Bilateral toe series 05/20/2018 FINDINGS: Bones: Mildly displaced fracture of the fifth proximal phalange. No suspicious bony lesions. Calcanea l bone spur. Midfoot osteoarthritis. Soft tissues: No tibiotalar joint effusion. Achilles tendon appears normal. Density in the soft tis sues adjacent to the medial margin of the left first proximal phalange is stable compared IMPRESSION: Left fifth proximal phalangeal fracture.. Reviewed by: Marjorie Davis MD, PhD on 04/20/2020 8:15 PM PDT Approved by: Marjorie Davis MD, PhD on 04/20/2020 8:15 PM PDT Station ID: [id number]
== END 2020-04-20 19:07 | disposition home or self-care (01) ==
LOC: DI 19:06
PROVIDERS: ATTEND Internal Medicine
DX: S92.512A Displaced fracture of proximal phalanx of left lesser toe(s), initial encounter for closed fracture (principal); S90.935A Unspecified superficial injury of left lesser toe(s), initial encounter; M19.072 Primary osteoarthritis, left ankle and foot

== ENCOUNTER 2020-08-04 10:19 | Outpatient (CLI) | payer MEDICARE, MEDICAID ==
[2020-08-04 14:29] LABS: BASOPHILS # (AUTO) 0.1 10^3/uL (0.0-0.1); BASOPHILS % (AUTO) 0.9 %; EOSINOPHILS # (AUTO) 0.1 10^3/uL (0.0-0.7); EOSINOPHILS % (AUTO) 2.2 %; HGB - HEMOGLOBIN 12.9 g/dL (12.0-16.0); LYMPHOCYTES # (AUTO) 1.8 10^3/uL (1.5-3.5); LYMPHOCYTES % (AUTO) 32.9 %; MEAN CORPUSCULAR HEMOGLOBIN 26.7 pg (27.0-31.0); MEAN CORPUSCULAR HGB CONC 30.4 g/dL (32.0-36.0); MEAN CORPUSCULAR VOLUME 87.8 fL (81.0-99.0); MEAN PLATELET VOLUME 12.2 fL (7.9-10.8); MONOCYTES # (AUTO) 0.4 10^3/uL (0.0-1.0); MONOCYTES % (AUTO) 7.7 %; NEUTROPHILS % (AUTO) 55.9 %; PLT - PLATELET COUNT 288 10^3/uL (130-450); RED BLOOD COUNT 4.83 10^6/uL (4.20-5.40); RED CELL DISTRIBUTION WIDTH 14.2 % (12.0-15.0); WHITE BLOOD COUNT 5.4 x10^3/uL (4.8-10.8)
[2020-08-04 15:06] LABS: ALBUMIN/GLOBULIN RATIO 1.3 (1.0-2.2); ALKALINE PHOSPHATASE 116 IU/L (42-121); ALT ALANINE AMINOTRANSFERASE 28 IU/L (10-60); AST ASPARTATE AMINOTRANSFERASE 23 IU/L (10-42); BILIRUBIN,TOTAL 0.5 mg/dL (0.2-1.0); BUN - BLOOD UREA NITROGEN 17 mg/dL (6-20); CALCIUM 9.2 mg/dL (8.5-10.3); CARBON DIOXIDE - CO2 23 mmol/L (21-32); CHLORIDE 105 mmol/L (101-111); CHOL/HDL RATIO 2.5 (<4.4); CHOLESTEROL 100 mg/dL; CREATININE 0.6 mg/dL (0.4-1.0); GLUCOSE 134 mg/dL (70-100); HDL CHOLESTEROL 40 mg/dL; LDL CHOLESTEROL,CALCULATED 52 mg/dL; LDL/HDL RATIO 1.3 (<4.4); SODIUM 138 mmol/L (135-145); VLDL CHOLESTEROL 8 mg/dL
[2020-08-04 15:12] LABS: THYROID STIMULATING HORMONE 3.93 uIU/mL (0.34-5.60)
[2020-08-04 21:12] LABS: HEMOGLOBIN A1c% 7.1 % (4.27-6.07)
== END 2020-08-04 10:20 | disposition home or self-care (01) ==
LOC: LAB.S 10:19
PROVIDERS: ATTEND Internal Medicine
DX: Z13.6 Encounter for screening for cardiovascular disorders (principal); G47.33 Obstructive sleep apnea (adult) (pediatric); I48.91 Unspecified atrial fibrillation; K76.0 Fatty (change of) liver, not elsewhere classified; G64 Other disorders of peripheral nervous system; I26.99 Other pulmonary embolism without acute cor pulmonale; E11.9 Type 2 diabetes mellitus without complications; E03.9 Hypothyroidism, unspecified; Z79.899 Other long term (current) drug therapy
CPT/HCPCS: 36415; 80053; 80061; 82607; 83036; 83721; 84443; 85025

== ENCOUNTER 2020-08-30 17:29 | Outpatient (CLI) | payer MEDICARE, MEDICAID ==
[2020-08-30 20:02] LABS: BILIRUBIN,URINE NEGATIVE (NEGATIVE); GLUCOSE, URINE (UA) 100 mg/dL (NEGATIVE); KETONES,URINE (UA) NEGATIVE (NEGATIVE); LEUKOCYTE ESTERASE, URINE NEGATIVE (NEGATIVE); NITRITE,URINE NEGATIVE (NEGATIVE); OCCULT BLOOD,URINE NEGATIVE (NEGATIVE); PH,URINE 5.5 PH (5.0-7.5); PROTEIN,URINE NEGATIVE (NEGATIVE); UROBILINOGEN,URINE 0.2 (NORMAL) E.U./dL (NORMAL)
[2020-08-30 20:07] LABS: CLARITY,URINE CLEAR (CLEAR)
== END 2020-08-30 17:30 | disposition home or self-care (01) ==
LOC: LAB.S 17:29
PROVIDERS: ATTEND Internal Medicine
DX: R39.9 Unspecified symptoms and signs involving the genitourinary system (principal); N32.81 Overactive bladder
CPT/HCPCS: 81001; 81003; 87086

== ENCOUNTER 2020-09-12 17:13 | Outpatient (CLI) | payer MEDICARE, MEDICAID | END 2020-09-12 17:14 | disposition home or self-care (01) | LOC: LAB.S 17:13 | DX: E11.59 Type 2 diabetes mellitus with other circulatory complications (principal); F51.01 Primary insomnia; I25.10 Atherosclerotic heart disease of native coronary artery without angina pectoris | CPT/HCPCS: 36415; 80053; 80061; 82043; 82306; 82570; 82607; 82746; 83036; 83721; 83735; 84100 ==

== ENCOUNTER 2020-09-20 18:17 | Outpatient (CLI) | payer MEDICARE, MEDICAID ==
[2020-09-20 20:11] LABS: CREATININE,URINE 122.1 mg/dL; MICROALBUM/CREATININE RATIO,UR 17.2 ug/mg (<30.0); MICROALBUMIN,URINE 2.1 mg/dL (0-300.0)
[2020-09-20 20:17] LABS: ALBUMIN 4.5 g/dL (3.2-5.5); ALBUMIN/GLOBULIN RATIO 1.3 (1.0-2.2); ALKALINE PHOSPHATASE 105 IU/L (42-121); ALT ALANINE AMINOTRANSFERASE 23 IU/L (10-60); AST ASPARTATE AMINOTRANSFERASE 22 IU/L (10-42); BILIRUBIN,TOTAL 0.4 mg/dL (0.2-1.0); BUN - BLOOD UREA NITROGEN 17 mg/dL (6-20); CALCIUM 9.5 mg/dL (8.5-10.3); CARBON DIOXIDE - CO2 26 mmol/L (21-32); CHLORIDE 101 mmol/L (101-111); CHOL/HDL RATIO 3.4 (<4.4); CHOLESTEROL 152 mg/dL; CREATININE 0.6 mg/dL (0.4-1.0); GLUCOSE 119 mg/dL (70-100); HDL CHOLESTEROL 45 mg/dL; LDL CHOLESTEROL,CALCULATED 91 mg/dL; MAGNESIUM 1.9 mg/dL (1.7-2.8); PHOSPHORUS 3.6 mg/dL (2.5-4.6); VLDL CHOLESTEROL 16 mg/dL
[2020-09-20 20:37] LABS: FOLATE 20.44 ng/mL (5.90 - >24.8)
[2020-09-21 11:42] LABS: HEMOGLOBIN A1c% 7.2 % (4.27-6.07)
== END 2020-09-20 18:18 | disposition home or self-care (01) ==
LOC: LAB.S 18:17
PROVIDERS: ATTEND Orthopaedic Surgery Hand Surgery
DX: E11.59 Type 2 diabetes mellitus with other circulatory complications (principal); F51.01 Primary insomnia; I25.10 Atherosclerotic heart disease of native coronary artery without angina pectoris
CPT/HCPCS: 36415; 80053; 80061; 82043; 82306; 82570; 82607; 82746; 83036; 83721; 83735; 84100

== ENCOUNTER 2020-12-16 | Outpatient (CLI) | payer MEDICARE, MEDICAID | END 2020-12-16 14:21 | disposition EMS.NT | DX: M54.5 Low back pain (principal) ==

== ENCOUNTER 2021-03-16 11:42 | Outpatient (CLI) | payer MEDICARE | END 2021-03-16 11:43 | disposition EMS.NT | LOC: EMS 11:42 | DX: R06.00 Dyspnea, unspecified (principal) ==

== ENCOUNTER 2021-04-02 16:43 | Outpatient (CLI) | payer MEDICARE, MEDICAID ==
[2021-04-02 20:13] LABS: BILIRUBIN,URINE NEGATIVE (NEGATIVE); GLUCOSE, URINE (UA) 250 mg/dL (NEGATIVE); KETONES,URINE (UA) NEGATIVE (NEGATIVE); LEUKOCYTE ESTERASE, URINE TRACE (NEGATIVE); NITRITE,URINE NEGATIVE (NEGATIVE); OCCULT BLOOD,URINE NEGATIVE (NEGATIVE); PH,URINE 5.5 PH (5.0-7.5); PROTEIN,URINE NEGATIVE (NEGATIVE); UROBILINOGEN,URINE 0.2 (NORMAL) E.U./dL (NORMAL)
[2021-04-02 20:25] LABS: BACTERIA,URINE Many /HPF (None Seen); CLARITY,URINE SL. CLOUDY (CLEAR); RBC,URINE 0-5 /HPF (0-5); SQUAMOUS EPITHELIAL CELL,UR FEW Squamous (<= Few); WBC CLUMPS,URINE PRESENT; WBC,URINE >25 /HPF (0-5)
== END 2021-04-02 16:44 | disposition home or self-care (01) ==
LOC: LAB.S 16:43
PROVIDERS: ATTEND Student in an Organized Health Care Education/Training Program
DX: R30.0 Dysuria (principal)
CPT/HCPCS: 81001; 87086; 87181

== ENCOUNTER 2021-12-25 08:00 | Outpatient (CLI) | payer MEDICARE, MEDICAID ==
[2021-12-25 15:38] LABS: BASOPHILS % (AUTO) 0.6 %; EOSINOPHILS # (AUTO) 0.2 10^3/uL (0.0-0.7); EOSINOPHILS % (AUTO) 2.7 %; HCT - HEMATOCRIT 40.4 % (37.0-47.0); HGB - HEMOGLOBIN 12.9 g/dL (12.0-16.0); LYMPHOCYTES # (AUTO) 1.9 10^3/uL (1.5-3.5); LYMPHOCYTES % (AUTO) 27.5 %; MEAN CORPUSCULAR HEMOGLOBIN 27.4 pg (27.0-31.0); MEAN CORPUSCULAR HGB CONC 31.9 g/dL (32.0-36.0); MEAN CORPUSCULAR VOLUME 85.8 fL (81.0-99.0); MEAN PLATELET VOLUME 11.4 fL (7.9-10.8); MONOCYTES # (AUTO) 0.6 10^3/uL (0.0-1.0); MONOCYTES % (AUTO) 8.8 %; NEUTROPHILS # (AUTO) 4.1 10^3/uL (1.5-6.6); NEUTROPHILS % (AUTO) 60.3 %; PLT - PLATELET COUNT 253 10^3/uL (130-450); RED BLOOD COUNT 4.71 10^6/uL (4.20-5.40); RED CELL DISTRIBUTION WIDTH 13.6 % (12.0-15.0); WHITE BLOOD COUNT 6.8 x10^3/uL (4.8-10.8)
[2021-12-25 15:54] LABS: ALBUMIN 4.2 g/dL (3.2-5.5); ALBUMIN/GLOBULIN RATIO 1.3 (1.0-2.2); BILIRUBIN,TOTAL 0.7 mg/dL (0.2-1.0); CALCIUM 9.3 mg/dL (8.5-10.3); CREATININE 0.9 mg/dL (0.4-1.0); POTASSIUM 3.6 mmol/L (3.5-5.0); TOTAL PROTEIN 7.5 g/dL (6.7-8.2)
[2021-12-25 16:08] LABS: THYROID STIMULATING HORMONE 2.41 uIU/mL (0.34-5.60)
[2021-12-25 20:38] LABS: ESTIMATED AVERAGE GLUCOSE 148 mg/dL (70-100); HEMOGLOBIN A1c% 6.8 % (4.27-6.07)
== END 2021-12-25 23:59 | disposition home or self-care (01) ==
LOC: LAB 08:00
PROVIDERS: ATTEND Internal Medicine
DX: E11.9 Type 2 diabetes mellitus without complications (principal); Z79.899 Other long term (current) drug therapy; R26.89 Other abnormalities of gait and mobility
CPT/HCPCS: 36415; 80053; 82607; 83036; 84443; 85025

== ENCOUNTER 2022-12-08 07:00 | Outpatient (CLI) | payer MEDICARE, MEDICAID | END 2022-12-08 23:59 | disposition home or self-care (01) | LOC: LAB.S 07:00 | PROVIDERS: ATTEND Physician Assistant | DX: R30.0 Dysuria (principal) | CPT/HCPCS: 87086; 87181 ==

== ENCOUNTER 2022-12-24 08:00 | Outpatient (CLI) | payer MEDICARE, MEDICAID | END 2022-12-24 23:59 | disposition home or self-care (01) | LOC: LAB 08:00 | PROVIDERS: ATTEND Nurse Practitioner | DX: N39.0 Urinary tract infection, site not specified (principal) | CPT/HCPCS: 87086; 87181 ==

== ENCOUNTER 2023-03-02 16:35 | Outpatient (CLI) | payer MEDICARE, MEDICAID ==
--- NOTE | 2023-03-03 15:09 | Ultrasound Report ---
PROCEDURE: Ext Limited Non Vascular INDICATIONS: MASS OF RIGHT HAND TECHNIQUE: Ultrasound of the second and third metacarpals area of reported abnormality was performed. COMPARISON: None. FINDINGS: Ultrasound demonstrates normal-appearing tissue. No focal mass. Possible edema around the second digit No fluid collection or abscess. IMPRESSION: No focal mass. Possible edema around the second digit in the area ultrasounded. Consider MRI of the hand. Reviewed by: Dionte Rodriguez on 03/03/2023 3:08 PM PDT Approved by: Dionte Rodriguez on 03/03/2023 3:08 PM PDT Station ID: [id number]
== END 2023-03-02 16:36 | disposition home or self-care (01) ==
LOC: DI 16:35
PROVIDERS: ATTEND Family Medicine
DX: R22.31 Localized swelling, mass and lump, right upper limb (principal)

== ENCOUNTER 2023-06-01 22:56 | Outpatient (CLI) | payer MEDICARE, MEDICAID | END 2023-06-01 22:57 | disposition left against medical advice (07) | LOC: EMS 22:56 | DX: Z03.89 Encounter for observation for other suspected diseases and conditions ruled out (principal) ==

== ENCOUNTER 2023-10-31 15:23 | Outpatient (CLI) | payer MEDICARE, MEDICAID | END 2023-10-31 15:24 | disposition EMS.NT | LOC: EMS 15:23 | DX: Z98.890 Other specified postprocedural states (principal) ==

== ENCOUNTER 2023-11-01 18:46 | Outpatient (CLI) | payer MEDICARE, MEDICAID | END 2023-11-01 18:47 | disposition short-term general hospital (02) | LOC: EMS 18:46 | DX: M25.562 Pain in left knee (principal); Z96.652 Presence of left artificial knee joint | CPT/HCPCS: A0425; A0429 ==

== ENCOUNTER 2023-11-04 16:19 | Outpatient (CLI) | payer MEDICARE, MEDICAID | END 2023-11-04 16:20 | disposition short-term general hospital (02) | LOC: EMS 16:19 | DX: T81.31XA Disruption of external operation (surgical) wound, not elsewhere classified, initial encounter (principal) | CPT/HCPCS: A0425; A0429; A0888 ==

== ENCOUNTER 2024-01-01 14:08 | Outpatient (CLI) | payer MEDICARE, MEDICAID | END 2024-01-01 23:59 | disposition EMS.NT | LOC: EMS 14:08 | DX: H53.8 Other visual disturbances (principal) ==

== ENCOUNTER 2024-04-07 14:08 | Outpatient (CLI) | payer MEDICARE, MEDICAID | END 2024-04-07 23:59 | disposition EMS.NT | LOC: EMS 14:08 | DX: R05.9 Cough, unspecified (principal); R09.89 Other specified symptoms and signs involving the circulatory and respiratory systems ==

== ENCOUNTER 2024-05-06 19:03 | Outpatient (CLI) | payer MEDICARE, MEDICAID | END 2024-05-06 19:04 | disposition EMS.NT | LOC: EMS 19:03 | DX: Z03.89 Encounter for observation for other suspected diseases and conditions ruled out (principal) ==